=== PATIENT | male | born 1995 | race Caucasian/White ===

== ENCOUNTER 2023-09-08 15:51 | Emergency (ER) | payer MEDICARE, OTHER, SELFPAY ==
[2023-09-08] VITALS (28 sets, daily range): BP systolic 101–155; BP diastolic 61–92; PULSE 69–123; RESP 16–18; TEMP 37.8; O2SAT 86–99; BMI 26.6
--- NOTE | 2023-09-08 16:18 | ED_ITS ---
HPI - Overdose General Time Seen by Provider: 16:18 Date Seen: 10/08/23 Chief Complaint: Overdose Stated Complaint: seizure Time Seen by Provider: 09/08/23 16:03 Source: patient, EMS, RN notes reviewed and old records reviewed Mode of arrival: EMS Limitations: no limitations History of Present Illness HPI Narrative: 28-year-old male who presents today with overdose of pregabalin. Patient usually takes this for pain into supposed to take 1 tablet today, over last 24 hours he has taken proximally 10 tablets. Patient has history of [id number] and chronic pain, you would take scanning, methadone, clonazepam. Denies suicide ideation, says he is trying to make his pain go away. Denies overdose on any of these substances. Denies nausea, vomiting, diarrhea, abdominal pain, chest pain, urinary symptoms. EMS reports ?seizure? after they picked him up and give him Versed 1 mg. Related Data Allergies Allergy/AdvReac Type Severity Reaction Status Date / Time haloperidol [From Haldol] Allergy Severe Seizure Verified 09/08/23 16:07 prochlorperazine Allergy Severe Seizure Verified 09/08/23 16:07 [From Compazine] Exam Const: Vital Signs, click to edit/add: Vital Signs - 24 hr 09/08/23 16:01 09/08/23 16:23 09/08/23 16:30 Temperature 100.1 F H Pulse Rate 111 H 92 Pulse Rate [Pulse Oximeter] 109 H Respiratory Rate 18 Blood Pressure Blood Pressure [Le ft Upper Arm] 155/92 H Pulse Oximetry 98 98 95 Oxygen Delivery Ri thod Room Air 09/08/23 16:31 09/08/23 16:45 09/08/23 16:46 Temperature Pulse Rate 97 102 H 88 Pulse Rate [Pulse Oximeter] Respiratory Rate Blood Pressure 123/86 125/84 Blood Pressure [Le ft Upper Arm] Pulse Oximetry 96 96 96 Oxygen Delivery Ri thod 09/08/23 17:00 09/08/23 17:01 09/08/23 17:04 Temperature Pulse Rate 88 82 77 Pulse Rate [Pulse Oximeter] Respiratory Rate Blood Pressure 116/72 Blood Pressure [Le ft Upper Arm] Pulse Oximetry 91 86 L 93 Oxygen Delivery Ri thod 09/08/23 17:29 09/08/23 17:30 09/08/23 17:31 Temperature Pulse Rate 74 71 75 Pulse Rate [Pulse Oximeter] Respiratory Rate Blood Pressure 116/68 Blood Pressure [Le ft Upper Arm] Pulse Oximetry 97 95 96 Oxygen Delivery Me thod 09/08/23 17:45 09/08/23 18:00 09/08/23 18:01 Temperature Pulse Rate 73 76 78 Pulse Rate [Pulse Oximeter] Respiratory Rate Blood Pressure 101/61 Blood Pressure [Le ft Upper Arm] Pulse Oximetry 95 92 93 Oxygen Delivery Me thod 09/08/23 18:15 09/08/23 18:30 09/08/23 18:31 Temperature Pulse Rate 69 91 123 H Pulse Rate [Pulse Oximeter] Respiratory Rate Blood Pressure 116/79 Blood Pressure [Le ft Upper Arm] Pulse Oximetry 93 99 98 Oxygen Delivery Me thod 09/08/23 18:45 09/08/23 19:00 09/08/23 19:01 Temperature Pulse Rate 69 79 78 Pulse Rate [Pulse Oximeter] Respiratory Rate Blood Pressure 111/68 Blood Pressure [Le ft Upper Arm] Pulse Oximetry 98 95 95 Oxygen Delivery Me thod 09/08/23 19:15 09/08/23 19:25 09/08/23 19:30 Temperature Pulse Rate 72 70 Pulse Rate [Pulse Oximeter] Respiratory Rate 16 Blood Pressure Blood Pressure [Le ft Upper Arm] Pulse Oximetry 94 94 Oxygen Delivery Me thod 09/08/23 19:31 09/08/23 19:31 09/08/23 19:45 Temperature Pulse Rate 72 72 70 Pulse Rate [Pulse Oximeter] Respiratory Rate Blood Pressure 101/65 101/65 Blood Pressure [Le ft Upper Arm] Pulse Oximetry 94 94 93 Oxygen Delivery Ri thod 09/08/23 20:00 09/08/23 20:01 Temperature Pulse Rate 75 92 Pulse Rate [Pulse Oximeter] Respiratory Rate Blood Pressure 131/84 Blood Pressure [Le ft Upper Arm] Pulse Oximetry 96 93 Oxygen Delivery Me thod Course Course ED Course: Patient seen examined, prior records are reviewed. Patient presents today after accidental overdose of pregabalin. Took approximately 1500 mg over the last several hours. Says he feels little sleepy but otherwise normal. We discussed with poison Control, somnolence with the major side effect and recommends observation until 8:00 p.m.. Patient also is noted to be tachycardic with occasional myoclonic twitches. Denies any other coingestion a dose of his antidepressant or other medications. Labs and fluids ordered. EMS reports seizure in route to the emergency department but clear patient has only some intermittent diffuse migratory myoclonic jerks. Reevaluation(s) Time of Reevaluation #1: 17:30 Reevaluation #1: Labs ordered and independently interpreted by me with normal white blood cell count, normal basic metabolic panel. Salicylate and acetaminophen both negative. Time of Reevaluation #2: 20:15 Reevaluation #2: Patient remains stable in the emergency department, slept some but was brought easily arousable and stable for discharge. Again denies suicide homicide ideation, denies attempted self-harm with his ingestion today. Vital Signs Vital signs: Initial Vital Signs Temperature 100.1 F H 09/08/23 16:01 Temperature Source Temporal Artery Scan 09/08/23 16:01 Pulse Rate 109 H 09/08/23 16:01 Pulse Rhythm Regular 09/08/23 16:01 Pulse Strength 3+ Normal 09/08/23 16:01 Respiratory Rate 18 09/08/23 16:01 Blood Pressure 155/92 H 09/08/23 16:01 Blood Pressure Mean 113 H 09/08/23 16:01 Blood Pressure Position Semi-Fowlers 09/08/23 16:01 Pulse Oximetry 98 09/08/23 16:01 Oxygen Delivery Method Room Air 09/08/23 16:01 Vital Signs Temperature 100.1 F H 09/08/23 16:01 Pulse Rate 109 H 09/08/23 16:01 Respiratory Rate 18 09/08/23 16:01 Blood Pressure 155/92 H 09/08/23 16:01 Pulse Oximetry 98 09/08/23 16:01 Oxygen Delivery Method Room Air 09/08/23 16:01 Temperature 100.1 F H 09/08/23 16:01 Pulse Rate 92 09/08/23 20:01 Respiratory Rate 16 09/08/23 19:25 Blood Pressure 131/84 09/08/23 20:01 Pulse Oximetry 93 09/08/23 20:01 Oxygen Delivery Method Room Air 09/08/23 16:01 Medications Administered Medications: Discontinued Medications Generic Name Dose Route Start Last Admin Trade Name Freq PRN Reason Stop Dose Admin Acetaminophen 1,000 mg 09/08/23 16:24 09/08/23 16:39 Acetaminophen 500 Mg Tablet PO 09/08/23 16:25 1,000 mg ONCE ONE Administration Sodium Chloride 1,000 mls @ 1,000 mls/hr 09/08/23 16:30 09/08/23 17:14 0.9 % Sodium Chloride 1000 Ml IV 09/08/23 17:29 Infused .Q1H LILLIE Infusion MDM - Overdose Lab Data Labs: Lab Results 09/08/23 09/08/23 Range/Units 16:35 17:43 WBC 5.15 (4.50-11.00) K/uL RBC 6.16 H (4.30-5.90) m/uL Hgb 18.3 H (13.5-17.5) gm/dL Hct 52.0 (37.0-53.0) % MCV 84 (80-100) fL MCH 30 (26-34) pg MCHC 35 (32-36) gm/dL RDW Coeff of [place] 11.2 L (11.5-15.5) % Plt Count 161 (140-440) K/uL Neut % (Auto) 73.9 H (42.0-72.0) % Lymph % (Auto) 17.9 L (20-44) % [place] % (Auto) 7.8 (0.0-11.0) % Eos % (Auto) 0.2 (0.0-7.0) % Baso % (Auto) 0.2 (0.0-3.0) % Neut # (Auto) 3.80 (1.7-7.0) K/uL Lymph # (Auto) 0.90 (0.90-2.90) K/uL [place] # (Auto) 0.40 (0.00-0.90) K/UL Eos # (Auto) 0.01 (0.00-0.50) K/uL Baso # (Auto) 0.01 (0.00-0.30) K/uL Abs Immat Gran (auto) 0.00 (0.00-0.30) K/uL Imm/Tot Granulo (auto) 0.0 % Sodium 142 (135-149) mmol/L Potassium 3.7 (3.6-5.1) mmol/L Chloride 104 (96-114) mmol/L Carbon Dioxide 25 (20-32) mmol/L Anion Gap 13 (7-15) mEq/L BUN 11 (5-24) mg/dL Creatinine 0.7 (0.5-1.5) mg/dL Estimated Creat Clear 139.25 Estimated GFR 127 ml/min Glucose 108 (60-115) mg/dL Calcium 9.9 (8.4-10.6) mg/dL Magnesium 2.1 (1.5-2.6) mg/dL Salicylates < 1.0 L (1.0-10) mg/dL Acetaminophen < 10.0 L (10.0-30.0) ug/mL Ethyl Alcohol < 0.01 L (0.01-0.03) % SARS-CoV-2 (PCR) Negative SARS-CoV-2 (Negative) Influenza Type A (PCR) Negative PCR FLU A (Negative) Influenza Type B (PCR) Negative PCR FLU B (Negative) RSV (PCR) Negative PCR RSV (Negative) Discharge Plan Discharge Clinical Impression: Chronic pain, Accidental overdose Patient Disposition: Home, Self-Care Condition: Stable Instructions: Chronic Pain (ED), Adult Overdose (ED) Additional Instructions: Take your medications only as prescribed Follow-up with your primary care provider Activity Level: Activity as Tolerated Discharge Diet: Regular Follow Up/Referrals: Provider,Not a Local [Primary Care Provider] - Stand Alone Forms: [employer] Info Instructions
[2023-09-08] MEDS: ACETAMINOPHEN 500 MG TABLET 1000 MG PO (16:39)
[2023-09-08] MEDS: 0.9 % SODIUM CHLORIDE 1000 ml 1,000 ML IV (16:39)
[2023-09-08 17:04] LABS: Basophils Absolute Auto 0.01 K/uL (0.00-0.30); Basophils Percent Auto 0.2 % (0.0-3.0); Eosinophils Absolute Auto 0.01 K/uL (0.00-0.50); Eosinophils Percent Auto 0.2 % (0.0-7.0); Hemoglobin* 18.3 gm/dL (13.5-17.5); Lymphocytes Percent Auto 17.9 % (20-44); Mean Corpuscular HGB Conc 35 gm/dL (32-36); Mean Corpuscular Hemoglobin 30 pg (26-34); Mean Corpuscular Volume 84 fL (80-100); Monocytes Percent Auto 7.8 % (0.0-11.0); Neutrophils Percent Auto 73.9 % (42.0-72.0); Platelet Count* 161 K/uL (140-440); RDW Coefficient of Variation % 11.2 % (11.5-15.5); Red Blood Count 6.16 m/uL (4.30-5.90); White Blood Count* 5.15 K/uL (4.50-11.00)
[2023-09-08 17:05] LABS: Slide Review Reflex No
[2023-09-08 17:11] LABS: Acetaminophen* < 10.0 ug/mL (10.0-30.0); Salicylate* < 1.0 mg/dL (1.0-10)
[2023-09-08 17:24] LABS: Chloride* 104 mmol/L (96-114); Potassium* 3.7 mmol/L (3.6-5.1); Sodium* 142 mmol/L (135-149)
[2023-09-08 17:27] LABS: Anion Gap 13 mEq/L (7-15); Carbon Dioxide* 25 mmol/L (20-32); Creatinine* 0.7 mg/dL (0.5-1.5); Est. Creatinine Clearance* 139.25; Estimated Glomerular Filt Rate 127 ml/min
[2023-09-08 17:28] LABS: Blood Urea Nitrogen* 11 mg/dL (5-24); Calcium* 9.9 mg/dL (8.4-10.6); Glucose* 108 mg/dL (60-115); Magnesium* 2.1 mg/dL (1.5-2.6)
[2023-09-08 17:45] LABS: Ethanol* < 0.01 % (0.01-0.03)
[2023-09-08 18:27] LABS: PCR FLU A Negative PCR FLU A (Negative); PCR FLU B Negative PCR FLU B (Negative); PCR RSV Negative PCR RSV (Negative); SARS PCR* Negative SARS-CoV-2 (Negative)
[2023-09-08 20:30] LABS: Appearance Urine Clear (Clear); Bilirubin Urine Negative (Negative); Blood Urine Negative (Negative); Color Urine Yellow (Yellow); Glucose Urine Negative (Negative); Ketones Urine Negative (Negative); Leukocyte Esterase Urine Negative (Negative); Nitrite Urine Negative (Negative); Protein Urine Negative (Negative); Specific Gravity Urine 1.015 (1.000-1.030)
[2023-09-08 20:40] LABS: Amphetamine Screen Urine Negative (Negative); Barbiturate Screen Urine Negative (Negative); Benzodiazepines Screen Urine Negative (Negative); Cannabinoid Screen Urine POSITIVE (Negative); Cocaine Screen Urine Negative (Negative); Methadone Screen Urine POSITIVE (Negative); Methamphetamines Screen Urine Negative (Negative); Opiate Screen Urine Negative (Negative); Oxycodone Screen Urine Negative (Negative); Phencyclidine Screen Urine Negative (Negative); Tricyclic Antidepressant Urine Negative (Negative)
[2023-09-08 20:48] LABS: RBC Urine 0-2 (0-2); WBC Urine 0-2 (0-5)
== END 2023-09-08 20:31 | disposition home or self-care (01) ==
PROVIDERS: Emergency Provider Family Medicine
DX: T42.6X1A Poisoning by other antiepileptic and sedative-hypnotic drugs, accidental (unintentional), initial encounter (principal); G89.29 Other chronic pain
CPT/HCPCS: 36415; 80048; 80143; 80179; 80306; 81001; 82077; 83735; 85025; 87631; 96360; 99284; 99285; A9270; J7030